=== PATIENT | male | born 1995 | race Caucasian/White ===

== ENCOUNTER 2019-03-26 09:37 | Emergency (ER) | payer OTHER ==
[2019-03-26] MEDS ORDERED: KETOROLAC TROMETHAMINE 30 MG VIAL ONE (10:18)
[2019-03-26] MEDS ORDERED: ONDANSETRON HCL 4 MG/2 ML VIAL ONE (10:18)
[2019-03-26] MEDS ORDERED: NS 1000 ML IV.SOLN IV ONE (10:18)
[2019-04-16 10:01] LABS: POTASSIUM 3.6 mmol/L (3.5-5.1)
[2019-04-16 10:02] LABS: ALBUMIN 4.7 g/dL (3.4-4.8); CREATININE 0.77 mg/dL (0.55-1.30); TOTAL BILIRUBIN 0.3 mg/dL (0.0-1.0)
[2019-04-16 10:03] LABS: HEMOGLOBIN 15.3 g/dL (14.0-18.0); MEAN CORPUSCULAR HEMOGLOBIN 32 pg (27-31); MEAN CORPUSCULAR HGB CONC 35 % (32-36); MEAN CORPUSCULAR VOLUME 92 fL (79.0-98.0); PLATELET COUNT (AUTO) 306 K/uL (130-430); RED BLOOD CELL COUNT(AUTO) 4.83 MIL/uL (4.2-6.2); RED CELL DISTRIBUTION WIDTH 12.8 % (9.0-15.0); WHITE BLOOD COUNT (AUTO) 9.9 K/uL (4.8-10.8)
[2019-04-16 10:04] LABS: BASOPHILS # (AUTO) 0.1 K/uL (0.0-0.2); BASOPHILS % (AUTO) 0.7 % (0.0-2.0); EOSINOPHILS # (AUTO) 0.1 K/uL (0.0-0.4); EOSINOPHILS % (AUTO) 0.6 % (0.0-4.0); LYMPHOCYTES # (AUTO) 2.2 K/uL (1.0-5.5); LYMPHOCYTES % (AUTO) 22.4 % (20.5-51.5); MONOCYTES # (AUTO) 0.6 K/uL (0.0-1.0); MONOCYTES % (AUTO) 5.9 % (1.7-9.3); NEUTROPHILS % (AUTO) 70.4 % (40.0-70.0)
== END 2019-03-26 12:51 | disposition home or self-care (01) ==
LOC: SED 09:37
DX: R07.9 Chest pain, unspecified (principal); R10.13 Epigastric pain; F10.10 Alcohol abuse, uncomplicated; F14.90 Cocaine use, unspecified, uncomplicated; R42 Dizziness and giddiness; Y90.9 Presence of alcohol in blood, level not specified
CPT/HCPCS: 36415; 71045; 80053; 82150; 83690; 84484; 85025; 96361; 96374; 96375; 99284; J1885; J2405; J7030